=== PATIENT | male | born 1995 | race American Indian/Alaskan Native ===

== ENCOUNTER 2017-11-07 04:07 | Emergency (ER) | payer OTHER ==
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
== END 2017-11-07 05:57 ==
LOC: ED 04:07
DX: I46.9 Cardiac arrest, cause unspecified (principal)
CPT/HCPCS: 82962; 99285